=== PATIENT | female | born 1960 | race Caucasian/White ===

== ENCOUNTER 2019-08-04 23:51 | Inpatient (IN) | payer MEDICARE ==
[~2019-08-04] VITALS: Ht 157.5 cm; Wt 44.9 kg
[2019-08-05] MEDS ORDERED: SODIUM CHLORIDE 0.9% 1,000 ML IV ONE (00:25)
[2019-08-05] MEDS ORDERED: ONDANSETRON HCL 4MG/2ML INJ IV STA (00:25)
[2019-08-05 01:03] LABS: BASOPHILS % 0.2 % (0.0-2.0); EOSINOPHILS % 0.3 % (0.0-5.0); HEMATOCRIT. 38.6 % (36.0-48.0); HEMOGLOBIN. 13.6 g/dL (12.0-16.0); LYMPHOCYTES % 20.7 % (20.0-50.0); MEAN CORPUSCULAR HEMOGLOBIN 32.3 pg (28.0-32.0); MEAN CORPUSCULAR VOLUME 91.7 fL (81.0-99.0); MEAN PLATELET VOLUME 8.7 fl (7.4-10.4); MONOCYTES % 8.1 % (2.0-8.0); NEUTROPHILS % 70.7 % (40.0-76.0); PLATELET 178 x1000/uL (130-400); RED BLOOD CELL COUNT 4.21 mill/uL (4.2-5.4); RED CELL DISTRIBUTION WIDTH 13.1 % (11.6-14.6)
[2019-08-05 01:09] LABS: CHLORIDE 109 mEq/L (98-107)
[2019-08-05 01:13] LABS: ETHANOL BLOOD < 10 mg/dL
[2019-08-05 01:44] LABS: BG BASE EXCESS -0.8 mmol/L (-2.0-2.0); BG CARBOXYHEMOGLOBIN 0.4 % (0.5-1.5); BG DEOXYHEMOGLOBIN 2.7 % (0.0-5.0); BG FRACTION INSPIRED OXYGEN 21; BG HCO3 ACT 23.5 mmol/L (22.0-26.0); BG METHEMOGLOBIN 0.3 % (0.0-1.5); BG OXYGEN SATURATION 97.3 % (92.0-98.5); BG OXYHEMOGLOBIN 96.6 % (94.0-97.0); BG PCO2 37.6 mmHg (35.0-45.0); BG PH 7.413 (7.350-7.450); BG PO2 97.5 mmHg (75.0-100.0); BG SAMPLE SITE RIGHT RADIAL; BG TOTAL HEMOGLOBIN 13.8 g/dL (12.0-18.0); BG VENT MODE ROOM AIR
[2019-08-05 02:21] LABS: CLARITY URINE CLEAR (CLEAR); COLOR URINE YELLOW (YELLOW); KETONES URINE 1+ (NEGATIVE); LEUKOCYTE ESTERASE URINE NEGATIVE (NEGATIVE); NITRITE URINE NEGATIVE (NEGATIVE); OCCULT BLOOD URINE 1+ (NEGATIVE); PH URINE 6.5 (4.5-8.0); PROTEIN URINE NEGATIVE (NEGATIVE); SPECIFIC GRAVITY URINE 1.011 (1.005-1.030); UROBILINOGEN URINE 0.2 E.U./dL (0.2-1.0)
[2019-08-05 02:34] LABS: *AMPHETAMINES SCREEN URINE NEGATIVE (NEGATIVE); *BARBITURATES SCREEN URINE NEGATIVE (NEGATIVE); *BENZODIAZEPINES SCREEN URINE PRESUMTIVE POSITIVE (NEGATIVE); *COCAINE SCREEN URINE NEGATIVE (NEGATIVE); METHADONE URINE SCREEN NEGATIVE (NEGATIVE); PHENCYCLIDINE URINE SCREEN NEGATIVE (NEGATIVE)
[2019-08-05 02:35] LABS: CANNABINOID URINE SCREEN NEGATIVE (NEGATIVE); OPIATES URINE SCREEN NEGATIVE (NEGATIVE)
[2019-08-05] MEDS ORDERED: PHENYTOIN SODIUM 100MG/2ML VIAL IV ONE (03:00)
[2019-08-05] MEDS ORDERED: LORAZEPAM 2MG/ML CPJ IV ONE (03:00)
[2019-08-05] MEDS ORDERED: MAGNESIUM 2 G PREMIX 50 ML IV NR (03:00)
[2019-08-05] MEDS ORDERED: POTASSIUM CHLORIDE 20MEQ TABLET SR PO NR (03:00)
[2019-08-05] MEDS: SODIUM CHLORIDE 0.45% 1,000 ML IV SCH (06:26)
[2019-08-05] MEDS ORDERED: LORAZEPAM 2MG/ML CPJ IV PRN (06:30)
[2019-08-05] MEDS ORDERED: ONDANSETRON HCL 4MG/2ML INJ IV PRN (06:30)
[2019-08-05] MEDS ORDERED: MAGNESIUM/ALUMINUM HYDROXIDE/SIMETHICONE 30ML UDC PO PRN (06:30)
[2019-08-05] MEDS ORDERED: ACETAMINOPHEN 325MG TABLET PO PRN (06:30)
[2019-08-05] MEDS ORDERED: CLONIDINE 0.1MG TABLET PO PRN (06:30)
[2019-08-05] MEDS: ENOXAPARIN 40MG/0.4ML SYR SUBCUT SCH (07:30)
[2019-08-05] MEDS: LEVETIRACETAM 500 MG in SODIUM CHLORIDE 0.9% 100 ML IV SCH ×2 (09:00→20:14)
[2019-08-05] MEDS: LEVETIRACETAM 500MG PREMIX 100 ML IV SCH ×2 (09:38→20:08)
[2019-08-05 12:00] VITALS: BP 115/68
[2019-08-05 12:30] VITALS: BP 115/82
[2019-08-05 16:00] VITALS: BP 132/75
[2019-08-05 20:00] VITALS: BP 119/73
[2019-08-06] VITALS: BP 108/59
[2019-08-06] MEDS: SODIUM CHLORIDE 0.45% 1,000 ML IV SCH ×2 (03:03→12:43)
[2019-08-06 04:00] VITALS: BP 106/61
[2019-08-06 08:00] VITALS: BP 118/72
[2019-08-06] MEDS: ENOXAPARIN 40MG/0.4ML SYR SUBCUT SCH (08:13)
[2019-08-06] MEDS: LEVETIRACETAM 500MG PREMIX 100 ML IV SCH (08:14)
[2019-08-06 08:22] LABS: BASOPHILS % 0.2 % (0.0-2.0); EOSINOPHILS % 0.8 % (0.0-5.0); HEMATOCRIT. 38.5 % (36.0-48.0); LYMPHOCYTES % 18.5 % (20.0-50.0); MEAN CORPUSCULAR HEMOGLOBIN 31.2 pg (28.0-32.0); MEAN CORPUSCULAR VOLUME 92.2 fL (81.0-99.0); MEAN PLATELET VOLUME 8.8 fl (7.4-10.4); MONOCYTES % 6.5 % (2.0-8.0); PLATELET 170 x1000/uL (130-400); RED BLOOD CELL COUNT 4.18 mill/uL (4.2-5.4); RED CELL DISTRIBUTION WIDTH 13.1 % (11.6-14.6)
[2019-08-06 08:37] LABS: CHLORIDE 108 mEq/L (98-107)
[2019-08-06] MEDS ORDERED: KEPP500 MT (11:07)
[2019-08-06 11:09] VITALS: BP 122/71
[2019-08-06 12:00] VITALS: BP 122/71
[2019-08-06 16:00] VITALS: BP 111/70
== END 2019-08-06 14:30 | disposition home or self-care (01) | DRG 101 ==
LOC: ER 23:51 → EDBD 08-05 03:55 → MICUSO 08-05 03:55 → EDBEDREQTM 08-05 04:06 → EDBEDREQ 08-05 04:06 → 5WST 08-05 12:55
PROVIDERS: ADMIT Hospitalist; ATTEND Hospitalist
DX: G40.909 Epilepsy, unspecified, not intractable, without status epilepticus (principal); B69.0 Cysticercosis of central nervous system; R64 Cachexia; Z68.1 Body mass index [BMI] 19.9 or less, adult; E87.6 Hypokalemia
CPT/HCPCS: 36415; 36600; 71045; 80053; 80185; 80305; 80320; 81003; 82375; 82805; 84484; 85025; 93005; 93970; 99291; J1165; J1650; J1953; J2060; J2405; J3475; J7030; J7050; G0480

== ENCOUNTER 2020-02-20 13:22 | Emergency (ER) | payer MEDICARE ==
[~2020-02-20] VITALS: Ht 162.6 cm; Wt 50.0 kg
[2020-02-20] MEDS ORDERED: LEVETIRACETAM 500MG PREMIX 100 ML IV ONE (13:45)
[2020-02-20] MEDS ORDERED: SODIUM CHLORIDE 0.9% 1,000 ML IV ONE (13:45)
[2020-02-20] MEDS ORDERED: PHENYTOIN SODIUM EXTENDED 100MG CAPSULE PO ONE (17:45)
[2020-02-20 18:28] VITALS: BP 123/76
== END 2020-02-20 18:49 | disposition home or self-care (01) ==
LOC: ER 13:22
DX: R56.9 Unspecified convulsions (principal)
CPT/HCPCS: 93005; 99283; J7030